=== PATIENT | female | born 1975 | race Caucasian/White ===

== ENCOUNTER 2020-11-05 23:16 | Emergency (ER) | payer OTHER ==
[~2020-11-05] VITALS: Ht 165.1 cm; Wt 69.9 kg
[2020-11-05] MEDS ORDERED: ONDANSETRON ODT4 MG PO (23:50)
[2020-11-05] MEDS ORDERED: GABAPENTIN300 MG PO (23:50)
[2020-11-06] MEDS ORDERED: KETOROLAC TROMETHAMINE 30 MG/ML VIAL IM ONE
[2020-11-06] MEDS ORDERED: HYDROCODONE/APAP 5MG-325MG TAB PO ONE
[2020-11-06] MEDS ORDERED: ONDANSETRON HCL 4 MG ORAL DISINTEGRATING TAB PO ONE
[2020-11-06] MEDS ORDERED: ONDANSETRON HCL 4 MG ORAL DISINTEGRATING TAB ONE (00:09)
[2020-11-06] MEDS ORDERED: HYDROCODONE/APAP 5MG-325MG TAB ONE (00:10)
[2020-11-06] MEDS ORDERED: KETOROLAC TROMETHAMINE 30 MG/ML VIAL ONE (00:10)
[2020-11-06 00:11] VITALS: BP 118/77
== END 2020-11-06 00:11 | disposition home or self-care (01) ==
LOC: FSED 23:28
DX: G50.0 Trigeminal neuralgia (principal)
CPT/HCPCS: 96372; 99283; J1885; Q0162

== ENCOUNTER 2024-07-29 01:32 | Emergency (ER) | payer OTHER ==
[~2024-07-29] VITALS: Ht 162.6 cm; Wt 64.4 kg
[~2024-07-29 01:32] MED LIST: GABAPENTIN300 MG PO; ONDANSETRON ODT4 MG PO
[2024-07-29 01:40] VITALS: PULSE 72; RESP 21; TEMP 97.6
[2024-07-29] MEDS: SODIUM CHLORIDE 0.9% 1000ML 1,000 ML IV ONE (02:53)
[2024-07-29] MEDS: KETOROLAC TROMETHAMINE 30 MG/ML VIAL IV STA (02:54)
[2024-07-29] MEDS: FAMOTIDINE 20 MG/2 ML VIAL IV STA (02:54)
[2024-07-29] MEDS ORDERED: IOPAMIDOL 370 MG/ML 100 ML INFUS..BTL INJ ONE (03:03)
[2024-07-29] MEDS: MAGNESIUM/ALUMINUM/SIMETHICONE 30 ML UDC PO ONE (06:07)
[2024-07-29] MEDS: LIDOCAINE VISC 2% SOLN 15 ML UDC PO ONE (06:08)
[2024-07-29] MEDS ORDERED: ONDANSETRON ODT4 MG PO (06:10)
[2024-07-29 06:13] VITALS: BP 109/69; PULSE 62; RESP 18; TEMP 97.9; O2SAT 99
== END 2024-07-29 06:16 | disposition home or self-care (01) ==
LOC: FSED 01:46
DX: R10.13 Epigastric pain (principal); K80.50 Calculus of bile duct without cholangitis or cholecystitis without obstruction; N83.8 Other noninflammatory disorders of ovary, fallopian tube and broad ligament; R11.2 Nausea with vomiting, unspecified; R45.82 Worries
CPT/HCPCS: 74177; 76705; 80048; 80076; 81003; 81025; 85025; 99284; J1885; J2470; J7030; Q9967; J1308